=== PATIENT | male | born 1975 | race Caucasian/White ===

== ENCOUNTER 2017-01-22 08:19 | Emergency (ER) | payer OTHER ==
[2017-01-22 09:30] LABS: BASO % 0.6 % (0.2-1.2); EOS # 0.1 10_X3_uL (0.0-0.5); EOS % 1.5 % (0.8-7.0); GRAN # 2.9 10_X3_uL (1.8-5.4); GRAN % 54.7 % (34.0-67.9); HEMOGLOBIN 16.1 g/dL (13.7-17.5); LYMPH # 1.7 10_X3_uL (1.3-3.6); LYMPH % 32.1 % (21.8-53.1); MEAN CORPUSCULAR HEMOGLOBIN 32.1 pg (27.0-33.0); MEAN CORPUSCULAR VOLUME 91.8 fL (79-92); MEAN PLATELET VOLUME 10.5 fl (7.5-11.5); MONO # 0.6 10_X3_uL (0.3-0.8); MONO % 11.1 % (5.3-12.2); PLATELET COUNT 239 x10_3/uL (163-337); RED BLOOD COUNT 5.01 x10_6/uL (4.6-6.1); WHITE BLOOD COUNT 5.2 x10_3/uL (4.2-9.1)
[2017-01-22 09:52] LABS: ALBUMIN 4.4 gm/dL (3.4-5.0); ALKALINE PHOSPHATASE 60 U/L (50-136); ALT/SGPT 18 U/L (7.53-40.17); AMYLASE 53 U/L (15.62-74.58); AST/SGOT 17 U/L (6.66-35.34); BILIRUBIN,TOTAL 0.47 mg/dL (0.0-1.0); BLOOD UREA NITROGEN 12 mg/dL (7-18); CALCIUM 9.4 mg/dL (8.7-10.7); CARBON DIOXIDE 26 mmol/L (21-32); CREATININE 0.8 mg/dL (0.6-1.3); GLUCOSE,RANDOM 95 mg/dL (70-99); LIPASE 22 U/L (6.75-60.75); SODIUM 140 mmol/L (136-145); TOTAL PROTEIN 7.6 gm/dL (6.4-8.2)
== END 2017-01-22 11:29 | disposition home or self-care (01) ==
LOC: ER 08:19
PROVIDERS: Emergency Medicine
DX: A08.4 Viral intestinal infection, unspecified (principal); R11.2 Nausea with vomiting, unspecified; R19.7 Diarrhea, unspecified; F17.220 Nicotine dependence, chewing tobacco, uncomplicated
CPT/HCPCS: 36415; 80053; 82150; 83690; 85025; 87400; 96361; 96374; 99070; 99283-25

== ENCOUNTER 2017-01-24 09:06 | Emergency (ER) | payer OTHER | END 2017-01-24 10:52 | disposition home or self-care (01) | LOC: ER 09:06 | DX: A08.4 Viral intestinal infection, unspecified (principal); R10.9 Unspecified abdominal pain | CPT/HCPCS: 96361; 96374; 96375; 99283-25 ==